=== PATIENT | female | born 1970 | race African-American/Black ===

== ENCOUNTER 2017-03-10 14:16 | Emergency (ER) | payer OTHER ==
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
[~2017-03-10 14:16] MED LIST: ALBUTEROL2.5 MG/0.5 IH; DIFLUCAN PO; DULERA 100 MCG/13 GM; METRONIDAZOLE; MONISTAT 11 EA; PHENERGAN DM1 ML PO; PREDNISONE PO; TESSALON200 MG PO
== END 2017-03-10 17:22 | disposition home or self-care (01) ==
LOC: CED 14:16 → CFTX 14:16
DX: S39.012A Strain of muscle, fascia and tendon of lower back, initial encounter (principal); S66.912A Strain of unspecified muscle, fascia and tendon at wrist and hand level, left hand, initial encounter; J44.9 Chronic obstructive pulmonary disease, unspecified; F17.200 Nicotine dependence, unspecified, uncomplicated; Z88.0 Allergy status to penicillin; Z88.2 Allergy status to sulfonamides; Z79.899 Other long term (current) drug therapy; V49.40XA Driver injured in collision with unspecified motor vehicles in traffic accident, initial encounter
CPT/HCPCS: 29260; 72072; 72100; 73110; 96372; 99284; J1885